=== PATIENT | male | born 1975 ===

== ENCOUNTER 2017-05-13 17:29 | Emergency (ER) | payer OTHER ==
[2017-05-13 17:47] VITALS: RESP 18; TEMP 98.1
[2017-05-13] MEDS ORDERED: Sodium Chloride 0.9% 1,000 ML IV ONE (18:49)
[2017-05-13 18:55] LABS: URINE BILIRUBIN NEGATIVE (NEGATIVE); URINE BLOOD NEGATIVE (NEGATIVE); URINE COLOR Straw (YELLOW); URINE GLUCOSE (UA) NORMAL (Normal); URINE KETONE NEGATIVE (NEGATIVE); URINE LEUKOCYTE ESTERASE NEG Leu/uL (Negative); URINE PROTEIN NEGATIVE (NEGATIVE); URINE UROBILINOGEN NORMAL mg/dL (0.2-1.0)
[2017-05-13] MEDS ORDERED: Sodium Chloride 0.9% 1,000 ML ONE (19:17)
[2017-05-13 19:19] LABS: BASO % 0.6 % (0.0-2.0); EOS # 0.2 K/uL (0.0-0.7); EOS % 2.4 % (0.0-4.0); HEMATOCRIT 45.2 % (35.0-51.0); LYMPH # 2.2 K/uL (1.0-4.3); LYMPH % 29.6 % (20.0-40.0); MEAN CELL VOLUME 85.2 fL (80.0-94.0); MEAN CORPUSCULAR HEMOGLOBIN 28.4 pg (27.0-31.0); MEAN CORPUSCULAR HGB CONC 33.3 g/dL (33.0-37.0); MEAN PLATELET VOLUME 8.6 fL (7.2-11.7); MONO # 0.9 K/uL (0.0-0.8); MONO % 12.5 % (0.0-10.0); RED CELL DISTRIBUTION WIDTH 13.2 % (11.5-14.5); WHITE BLOOD COUNT 7.4 K/uL (4.8-10.8)
[2017-05-13 19:28] LABS: CHLORIDE 105 mmol/L (98-107); SODIUM 141 mmol/L (132-148)
[2017-05-13 19:29] LABS: POTASSIUM 3.9 mmol/L (3.6-5.2)
[2017-05-13 19:31] LABS: ALB/GLOB RATIO 1.3 (1.0-2.1); ALKALINE PHOSPHATASE 101 U/L (38-126); ALT/SGPT 61 U/L (21-72); AST/SGOT 52 U/L (17-59); BILIRUBIN,TOTAL 0.7 mg/dL (0.2-1.3); BLOOD UREA NITROGEN 12 mg/dL (9-20); CALCIUM 8.8 mg/dl (8.6-10.4); CARBON DIOXIDE 25 mmol/L (22-30); GFR AFRICAN-AMERICAN > 60; GLUCOSE,RANDOM 89 mg/dL (75-110); TOTAL PROTEIN 7.3 g/dL (6.3-8.3)
[2017-05-13 20:08] VITALS: BP 128/82; PULSE 62; O2SAT 98
--- NOTE | 2017-05-13 20:29 | C.PDOC ---
Time Seen by Provider: 05/13/17 18:38 Chief Complaint (Nursing): Abdominal Pain History Per: Patient Onset/Duration Of Symptoms: Days (1) Current Symptoms Are (Timing): Still Present Context: Other ( is sick contact) Severity: Moderate Location Of Pain/Discomfort: Epigastric Quality Of Discomfort: Unable To Describe, "Pain" Associated Symptoms: Nausea, Vomiting Exacerbating Factors: Food Alleviating Factors: None Last Bowel Movement: Today Recent travel outside of the [place]: No Additional History Per: Prior Records Past Medical History Reviewed: Historical Data, Nursing Documentation, Vital Signs Vital Signs: Last Vital Signs Temp 98.1 F 05/13/17 17:44 Pulse 62 05/13/17 20:07 Resp 18 05/13/17 20:07 BP 128/82 05/13/17 20:07 Pulse Ox 98 05/13/17 20:07 - Medical History PMH: Asthma, Back Problems, Hypercholesterolemia Surgical History: No Surg Hx - [facility] Procedures INJECT/INFUSE NEC (05/08/14) Family History: States: Unknown Family Hx - Social History Hx Tobacco Use: No Hx Alcohol Use: No Hx Substance Use: No - Immunization History Hx Tetanus Toxoid Vaccination: No Hx Influenza Vaccination: No Hx Pneumococcal Vaccination: No Review Of Systems Except As Marked, All Systems Reviewed And Found Negative. Constitutional: Negative for: Fever, Weakness ENT: Positive for: Nose Congestion Cardiovascular: Negative for: Chest Pain Respiratory: Positive for: Cough. Negative for: Shortness of Breath Gastrointestinal: Positive for: Nausea, Vomiting, Abdominal Pain. Negative for : Diarrhea, Melena, Hematochezia, Hematemesis Genitourinary: Negative for: Dysuria Musculoskeletal: Negative for: Neck Pain, Back Pain Skin: Negative for: Rash Neurological: Negative for: Weakness, Numbness, Seizures, Altered Mental Status , Headache Physical Exam - Physical Exam Appears: Non-toxic, No Acute Distress Skin: Normal Color, Warm, Dry, No Rash Head: Atraumatic, Normacephalic Eye(s): bilateral: Normal Inspection, PERRL, EOMI Oral Mucosa: Moist Neck: Normal ROM, Supple Cardiovascular: Rhythm Regular Respiratory: Normal Breath Sounds, No Accessory Muscle Use Gastrointestinal/Abdominal: Soft, No Tenderness Back: No CVA Tenderness Extremity: Normal ROM Neurological/Psych: Oriented x3, Normal Motor, Normal Sensation ED Course And Treatment - Laboratory Results Result Diagrams: 05/13/17 19:13 05/13/17 19:13 Lab Interpretation: No Acute Changes O2 Sat by Pulse Oximetry: 98 Pulse Ox Interpretation: Normal Progress - Interventions Interventions:: Observation, Intravenous fluid - Medications Administered Intravenous: Antiemetic, H-2 jose d - Data Reviewed Data Reviewed: Lab, Old records - Patient Status Patient status: Mostly improved - Continuity of Care Discussed patient case with:: Patient, Family-HIPPA compliant, ED Nurse - Patient Plan Patient Plan: Discharge, F/U with PCP, Continue present meds Disposition Counseled Patient/Family Regarding: Studies Performed, Diagnosis, Need For Followup, Rx Given - Disposition Referrals: [facility] [Outside] Disposition: HOME/ ROUTINE Disposition Time: 20:29 Condition: IMPROVED Additional Instructions: Drink plenty of fluids. Follow up with your doctor or in the clinic. Return to the ER if you develop fever, bleeding, not tolerating fluids, worsening of symptoms or if you have any other concerns. Prescriptions: Famotidine [Pepcid] 20 mg PO BID #30 tab Metoclopramide [Reglan] 1 tab PO TID PRN #15 tab PRN Reason: Nausea/Vomiting Instructions: Gastritis (ED) Print Language: JAPANESE - Clinical Impression Clinical Impression: Abdominal pain, Nausea and vomiting
== END 2017-05-13 20:42 | disposition home or self-care (01) ==
LOC: C.ER 17:29
DX: R10.9 Unspecified abdominal pain (principal); R11.2 Nausea with vomiting, unspecified
CPT/HCPCS: 80053; 81001; 83690; 85025; 96361; 96374; 96375; 99285; J2765; J7040

== ENCOUNTER 2017-12-04 21:50 | Emergency (ER) | payer SELFPAY ==
[2017-12-04] MEDS ORDERED: Lidocaine 5% Patch TD STA (22:25)
--- NOTE | 2017-12-04 22:35 | C.PDOC ---
History Of Present Illness 42 year old male presents to ED complaining of low back for 3 months. He reports pain is dull aching and worse on the right side. He reports may be related to work and lifting. He also admits to back injury many years ago. He additionally complains of right wrist and hand pain. He describes a cramping pain to hand and fingers when lifting objects or gripping. Denies any injury. Denies urinary/bowel incontinence, sensory changes, leg weakness, abdominal pain , or urinary symptoms. Time Seen by Provider: 12/04/17 22:13 Chief Complaint (Nursing): Back Pain History Per: Patient History/Exam Limitations: no limitations Onset/Duration Of Symptoms: Other (months) Current Symptoms Are (Timing): Still Present Quality Of Discomfort: "Pain" Severity: Moderate Past Medical History Reviewed: Historical Data, Nursing Documentation, Vital Signs Vital Signs: Last Vital Signs Temp 98.5 F 12/04/17 22:04 Pulse 80 12/04/17 22:04 Resp 20 12/04/17 23:19 BP 109/70 12/04/17 22:04 Pulse Ox 99 12/04/17 22:51 - Medical History PMH: Asthma, Back Problems, Hypercholesterolemia - [facility] Procedures INJECT/INFUSE NEC (05/08/14) Family History: States: Unknown Family Hx - Social History Hx Tobacco Use: No Hx Alcohol Use: No Hx Substance Use: No - Immunization History Hx Tetanus Toxoid Vaccination: No Hx Influenza Vaccination: No Hx Pneumococcal Vaccination: No Review Of Systems Except As Marked, All Systems Reviewed And Found Negative. Musculoskeletal: Positive for: Back Pain Physical Exam - Physical Exam Appears: Non-toxic, No Acute Distress Skin: Warm, Dry, No Rash, No Ecchymosis Head: Atraumatic, Normacephalic Eye(s): bilateral: Normal Inspection, EOMI Neck: Normal ROM, No Midline Cervical Tenderness, No Paracervical Tenderness Chest: Symmetrical Cardiovascular: Rhythm Regular, No Murmur Respiratory: Normal Breath Sounds, No Rales, No Rhonchi, No Wheezing Gastrointestinal/Abdominal: Normal Exam, Soft, No Tenderness, No Distention Back: Normal Inspection (no erythema, swelling or ecchymosis), No CVA Tenderness , No Vertebral Tenderness, Paraspinal Tenderness (paralumbar tenderness, right side greater than left), No Straight Leg Raising Extremity: Bilateral: Atraumatic, Normal Color And Temperature, Normal ROM Neurological/Psych: Oriented x3, Normal Speech ED Course And Treatment O2 Sat by Pulse Oximetry: 99 Medical Decision Making Medical Decision Making: patient with low back pain for few months, no acute injury. XRay of LS spine ordered which showed degenerative changes, no acute abnormality. Toradol, lidoderm patch and valium was ordered. 2255 Patient reevaluated and reports pain mildly improved. Explained xray shows no acute abnormality and pain likely muscular related. recommend rest, heat and analgesics. Follow up with the clinic. Disposition Counseled Patient/Family Regarding: Diagnosis, Need For Followup, Rx Given - Disposition Referrals: Carmel Carranza MD [Staff Provider] - Disposition: HOME/ ROUTINE Disposition Time: 23:00 Condition: GOOD Additional Instructions: Please follow up in the clinic for further care Take Tylenol or Motrin alternating every 6 hours for pain Take Flexeril for muscle pain as needed May apply heat to area for 15-20 minutes 2-3 times per day Prescriptions: Cyclobenzaprine [Cyclobenzaprine HCl] 10 mg PO TID #30 tab Ibuprofen [Motrin] 600 mg PO Q8 #30 tab Instructions: Acute Low Back Pain (DC) Forms: [facility] (Amharic) Print Language: SINHALA - POA Present On Arrival: None - Clinical Impression Clinical Impression: Low back pain
[2017-12-04 23:01] VITALS: BP 109/70; PULSE 80; RESP 20; TEMP 98.5; O2SAT 99
--- NOTE | 2017-12-05 08:37 | RAD ---
PROCEDURE: Radiographs of the Lumbar Spine. HISTORY: low back pain COMPARISON: Lumbar spine radiographs performed 12/10/15 FINDINGS: BONES: Alignment appears satisfactory. No listhesis. No acute displaced fracture identified. Degenerative changes including osteophyte formation. DISC SPACES: Unremarkable. OTHER FINDINGS: None. IMPRESSION: Degenerative changes. No acute displaced fracture or dislocation identified.
== END 2017-12-04 23:19 | disposition home or self-care (01) ==
LOC: C.ER 21:50
DX: M54.5 Low back pain (principal)
CPT/HCPCS: 72100; 96372; 99283; J1885

== ENCOUNTER 2017-12-25 22:13 | Emergency (ER) | payer SELFPAY ==
[2017-12-25 23:14] VITALS: BP 108/69; PULSE 76; RESP 20; TEMP 98.1; O2SAT 98
--- NOTE | 2017-12-25 23:51 | C.PDOC ---
History Of Present Illness 42 y/o male presents to the ER complaining of right elbow injury. States he tripped and fell 4 days ago while carrying a box, and landed on elbow. Now reports pain to posterior elbow, radiating to anterior elbow. No numbness, tingling, weakness. Time Seen by Provider: 12/25/17 23:29 Chief Complaint (Nursing): Upper Extremity Problem/Injury History Per: Patient History/Exam Limitations: no limitations Onset/Duration Of Symptoms: Days (x4) Current Symptoms Are (Timing): Still Present Past Medical History Reviewed: Historical Data, Nursing Documentation, Vital Signs Vital Signs: Last Vital Signs Temp 98.1 F 12/25/17 23:09 Pulse 76 12/25/17 23:09 Resp 20 12/26/17 00:58 BP 108/69 12/25/17 23:09 Pulse Ox 98 12/26/17 00:53 - Medical History PMH: Asthma, Back Problems, Hypercholesterolemia - [facility] Procedures INJECT/INFUSE NEC (05/08/14) Family History: States: No Known Family Hx - Social History Hx Tobacco Use: No Hx Alcohol Use: No Hx Substance Use: No - Immunization History Hx Tetanus Toxoid Vaccination: No Hx Influenza Vaccination: No Hx Pneumococcal Vaccination: No Review Of Systems Musculoskeletal: Positive for: Other (right elbow pain and swelling) Neurological: Negative for: Weakness, Numbness Physical Exam - Physical Exam Appears: Non-toxic, No Acute Distress Skin: Normal Color, No Rash Extremity: Normal ROM (of right hand and wrist), Tenderness (to medial aspect of right elbow), No Deformity, Swelling (mild), Other (able to pronate, supinate , and extend at elbow) Neurological/Psych: Oriented x3, Normal Speech, No Other (focal deficits) ED Course And Treatment O2 Sat by Pulse Oximetry: 98 (RA) Pulse Ox Interpretation: Normal Medical Decision Making Medical Decision Making: X-Ray of right elbow ordered. Pt given toradol for pain control. Chip fx noted on medial epicondyle, sling applied, pt will f/u with ortho Disposition Counseled Patient/Family Regarding: Studies Performed, Diagnosis, Need For Followup, Rx Given - Disposition Referrals: Gisela Brennan MD [Staff Provider] - [facility] [Outside] Disposition: HOME/ ROUTINE Disposition Time: 00:51 Condition: STABLE Additional Instructions: Use un cabestrillo para mayor comodidad. Marine ibuprofeno para el dolor segn lo recetado. Seguimiento con clnica mdica y ortopedia. Wear sling for comfort. Take ibuprofen for pain as prescribed. Follow up with medical clinic and orthopedics. Prescriptions: Naproxen 500 mg PO BID #20 tab Instructions: Elbow Fracture in Adults (ED) Forms: Gen Discharge Inst Maori, [employer] (Maori) Print Language: IRISH - Clinical Impression Clinical Impression: Elbow fracture, right - PA / CABLE FORMER / Resident Statement MD/DO has reviewed & agrees with the documentation as recorded. - Scribe Statement The provider has reviewed the documentation as recorded by the Scribe (Giselle Gomez) All medical record entries made by the Scribe were at my direction and personally dictated by me. I have reviewed the chart and agree that the record accurately reflects my personal performance of the history, physical exam, medical decision making, and the department course for this patient. I have also personally directed, reviewed, and agree with the discharge instructions and disposition.
--- NOTE | 2017-12-26 11:13 | RAD ---
PROCEDURE: Radiographs of the right elbow. HISTORY: s/p fall, pain to olecanaon COMPARISON: No prior. FINDINGS: BONES: The current study reveals some minimal irregularity of the medial aspect radial head ; the possibility of an nondisplaced fracture cannot be excluded given the presence of a small joint effusion. Followup radiographs in 7-[address] scan could also be performed and is much more sensitive for detecting subtle fractures that may not be readily apparent on initial plain film imaging. JOINTS: There is a tiny corticated elliptical shaped density adjacent to the epicondyle and a crescentic bony density adjacent to the medial margin of the coronoid process which may represent some old posttraumatic sequela and secondary DJD however the possibility of a tiny acute avulsion injury not excluded. SOFT TISSUES: No radiopaque foreign bodies JOINT EFFUSION: Small joint effusion OTHER FINDINGS: None. IMPRESSION: There is small joint effusion with some minimal irregularity along the radial head as described. Possibility of a nondisplaced fracture must be considered. Followup radiographs and/or CT scan recommended. Probable old posttraumatic mineralization changes however possibility of a tiny acute avulsion fracture adjacent to the medial aspect of the coronoid process of the olecranon not excluded Note this report was placed in PA review folder for followup
== END 2017-12-26 00:58 | disposition home or self-care (01) ==
LOC: C.ER 22:13
DX: S42.401A Unspecified fracture of lower end of right humerus, initial encounter for closed fracture (principal); W01.0XXA Fall on same level from slipping, tripping and stumbling without subsequent striking against object, initial encounter; E78.00 Pure hypercholesterolemia, unspecified
CPT/HCPCS: 73080; 96372; 99284; J1885